=== PATIENT | female | born 1980 | race Caucasian/White ===

== ENCOUNTER 2018-11-20 08:52 | Emergency (ER) | payer SELFPAY ==
[~2018-11-20] VITALS: Ht 154.9 cm; Wt 70.7 kg
[~2018-11-20 08:52] MED LIST: CYCL10TA7 PO; IBUP-1542 PO
[2018-11-20 09:09] VITALS: BP 140/85; PULSE 72; RESP 18; Ht 154.9 cm; Wt 70.7 kg
[2018-11-20] MEDS ORDERED: KETOROLAC 30 MG INJ IM STA (09:33)
[2018-11-20] MEDS ORDERED: traMADol 50 MG TAB PO ONE (10:00)
== END 2018-11-20 10:59 | disposition home or self-care (01) ==
LOC: FTE 08:52
DX: S23.9XXA Sprain of unspecified parts of thorax, initial encounter (principal); X50.0XXA Overexertion from strenuous movement or load, initial encounter; Y92.89 Other specified places as the place of occurrence of the external cause
CPT/HCPCS: 71045; 81025; 96372; 99284; J1885